=== PATIENT | female | born 1975 | race Caucasian/White ===

== ENCOUNTER → 2020-06-12 | Outpatient (CLI) | payer OTHER ==
[~2020-06-12] MED LIST: ALPRAZOLAM; CELEXA 20 MG TA20 M1 PO; CELEXA20 MG PO; CLONAZEPAM 1 MG1 M1 PO; CLONAZEPAM PO; DITROPAN XL5 M1 PO; DIVIGEL0.25 MG TD; ESTRADIOL 1 MG T1 M1 PO; LAMICTAL; LAMICTAL100 MG PO; NAPROSYN500 MG PO; NAPROXEN 500MG500 MG PO; OMEPRAZOLE40 MG PO; PERCOCET 5-3251 EACH PO; PYRIDIUM100 MG PO; TRILEPTAL150 MG PO; TRILEPTAL300 MG PO; XANAX1 MG PO; ZOFRAN ODT4 MG SUBLING
== END ==
LOC: LAB 14:17
PROVIDERS: ATTEND Podiatrist Foot & Ankle Surgery
DX: Z01.812 Encounter for preprocedural laboratory examination (principal); Z20.828 Contact with and (suspected) exposure to other viral communicable diseases

== ENCOUNTER 2020-06-15 12:35 | Day surgery (SDC) | payer OTHER ==
[~2020-06-15] VITALS: Ht 167.6 cm; Wt 93.0 kg
[2020-06-15 13:40] VITALS: BP 109/60
[2020-06-15 13:44] LABS: HEMATOCRIT 38.2 % (37.0-47.0); HEMOGLOBIN 13.3 gm/dL (12.0-15.0)
[2020-06-15 17:43] VITALS: BP 109/60
[2020-06-15 17:44] VITALS: BP 109/60
== END 2020-06-15 18:30 | disposition home or self-care (01) ==
LOC: OR 12:35 → TBA 12:36 → OR 18:30
PROVIDERS: ATTEND Podiatrist Foot & Ankle Surgery
DX: M96.0 Pseudarthrosis after fusion or arthrodesis (principal); T84.84XA Pain due to internal orthopedic prosthetic devices, implants and grafts, initial encounter; F31.9 Bipolar disorder, unspecified; F41.9 Anxiety disorder, unspecified; F17.210 Nicotine dependence, cigarettes, uncomplicated; K21.9 Gastro-esophageal reflux disease without esophagitis; Z98.890 Other specified postprocedural states; Z79.899 Other long term (current) drug therapy; Z90.710 Acquired absence of both cervix and uterus; Z90.49 Acquired absence of other specified parts of digestive tract; Z88.8 Allergy status to other drugs, medicaments and biological substances; Y83.8 Other surgical procedures as the cause of abnormal reaction of the patient, or of later complication, without mention of misadventure at the time of the procedure
CPT/HCPCS: 50010; 50101; 50386; 50951; 56524; 56526; 57091; 57178; 57458; 57461; 57466; 57467; 58324; 58325; 58326; 58327; 58328; 58329; 58330; 62110; 62900; 64039; 64042; 70005